=== PATIENT | female | born 1960 | race Caucasian/White ===

== ENCOUNTER 2018-09-10 11:29 | Emergency (ER) | payer MEDICAID, OTHER ==
[~2018-09-10] VITALS: Ht 170.2 cm; Wt 100.9 kg
[2018-09-10 11:32] VITALS: BP 134/82
== END 2018-09-10 12:32 | disposition home or self-care (01) ==
LOC: ED 12:11
DX: B34.9 Viral infection, unspecified (principal)
CPT/HCPCS: 71046; 99284

== ENCOUNTER 2018-09-16 14:43 | Emergency (ER) | payer MEDICAID ==
[~2018-09-16] VITALS: Ht 170.2 cm; Wt 101.0 kg
[2018-09-16 15:03] VITALS: BP 108/67
== END 2018-09-16 17:07 | disposition home or self-care (01) ==
LOC: ED 16:45
DX: J01.00 Acute maxillary sinusitis, unspecified (principal)
CPT/HCPCS: 99283